=== PATIENT | male | born 1965 | race Caucasian/White ===

== ENCOUNTER 2017-07-14 00:06 | Emergency (ER) | payer OTHER ==
[~2017-07-14] VITALS: Ht 167.6 cm; Wt 199.6 kg
[~2017-07-14 00:06] MED LIST: ACETAMINOPHEN325 M1 PO; ALDACTONE25 MG PO; AMOXICILLIN500 M1 PO; ATIVAN0.5 MG PO; ATORVASTATIN CA40 MG PO; BREO ELLIPTA 11 EACH IH; CALCIUM 500 +1 EAC5 PO; CALMOSEPTINE O3.5 GM TOP; COLACE100 MG PO; COUMADIN 2 MG TA2 M1 PO; COUMADIN 3 MG TA3 MG PO; CRANBERRY200 MG PO; DEPAKOTE500 MG; DILANTIN 100 M100 MG PO; FLEXERIL PO; FLOMAX0.4 MG PO; GLUCOPHAGE500 MG PO; HYDROCERIN CREA1 JAR TOP; HYDROCORTISO28.35 G1; INSULIN SQ; IRON325 PO; KEFLEX500 M1 PO; KEPPRA 500 MG500 MG PO; KEPPRA750 MG PO; LACTOBACILLUS RHAMNO PO; LACTULOSE20 GM/30 M PO; LANTUS SUBQ; LASIX 40 MG TAB40 M1 PO; LEVAQUIN 750 M750 MG PO; LISINOPRIL10 MG PO; METFORMIN PO; MINTOX PLUS TA1 EACH PO; MIRALAX17 GM PO; NYAMYC15 GM TOP; OXYBUTYNIN 5 MG5 M1 PO; PENICILLIN V P500 MG PO; PREDNISONE 20 M20 M1 PO; PROBIOTIC1 EAC1 PO; PROTONIX40 M1 PO; PROVENTIL HFA6.7 G1 INH; SENNA PLUS TAB1 EACH PO; SERTRALINE HCL50 MG PO; SPIRIVA INH; SYMBICORT160 MCG/4.; SYMBICORT160 MCG/4. INH; ULTRAM 50MG TAB50 MG PO; UNICOMPLEX M TA1 TA1 PO; URSO TAB 250 M250 MG PO; VENTOLIN HFA 1818 GM; VIMPAT200 MG PO; XIFAXAN550 M1 PO; ZINC SULFATE 2220 M1 PO; ZOLOFT50 MG PO
[2017-07-14 02:38] VITALS: BP 132/56
== END 2017-07-14 02:39 | disposition home or self-care (01) ==
LOC: ER 00:06
DX: Z46.6 Encounter for fitting and adjustment of urinary device (principal); I10 Essential (primary) hypertension; J45.909 Unspecified asthma, uncomplicated; E78.00 Pure hypercholesterolemia, unspecified; E66.01 Morbid (severe) obesity due to excess calories; Z88.1 Allergy status to other antibiotic agents; Z88.5 Allergy status to narcotic agent